=== PATIENT | male | born 1990 | race Caucasian/White ===

== ENCOUNTER 2017-06-13 13:15 | Day surgery (SDC) | payer BC ==
[2017-06-13] MEDS ORDERED: SODIUM CHLORIDE IVPB SCH (13:30)
[2017-06-13] MEDS ORDERED: Acetaminophen 500 MG TAB PO SCH (13:30)
[2017-06-13] MEDS ORDERED: ADMIXTURE FEE IVPB SCH (13:30)
[2017-06-13] MEDS ORDERED: IRON SUCROSE COMPLEX IVPB SCH (13:30)
[2017-06-13 14:27] VITALS: BP 121/61; TEMP 98.2
== END 2017-06-13 17:25 | disposition home or self-care (01) ==
LOC: ONC/OP 13:15
PROVIDERS: ATTEND Student in an Organized Health Care Education/Training Program
DX: D50.9 Iron deficiency anemia, unspecified (principal); M79.672 Pain in left foot; Z88.0 Allergy status to penicillin
CPT/HCPCS: 36415; 82728; 83540; 83550; 85025; 96365; 96366; J1756; J7050